=== PATIENT | male | born 1945 | race Caucasian/White ===

== ENCOUNTER 2016-11-26 02:28 | Emergency (ER) | payer OTHER ==
--- NOTE | 2016-11-26 02:55 | PROVIDER DOCUMENTATION ---
HPI-General Adult - General Source: patient - History of Present Illness -Gen Adult Location of Pain/Injury: reports: upper extremity (L SHOULDER), back Pain Radiation: reports: no radiation Quality of Pain: reports: sharp Severity: reports: moderate Onset/Duration: reports: 2 days ago Timing: reports: still present Context/Activities at Onset: reports: light activity Modifying Factors: improves with: coughing, movement Associated Symptoms: reports: back/neck pain, cough, fatigue, fever/chills Similar Symptoms Previously?: Yes Recently seen or treated by another doctor?: No <Charles Leonard - Last Filed: 11/26/16 04:20> <Javier Mauricio I - Last Filed: 11/26/16 07:41> - General Chief Complaint: Cold Symptoms Stated Complaint: BACK PAIN/COLD SX Time Seen by Provider: 11/26/16 02:44 Allergies/Adverse Reactions: Patient Allergies Allergy/AdvReac Type Severity Reaction Status Date / Time Penicillins Allergy Unknown Verified 11/26/16 02:54 Review of Systems - Adult - REVIEW OF SYSTEMS - ADULT Constitutional: reports: chills, fever Eyes: reports: no symptoms reported Ears, Nose, Mouth & Throat: reports: other (HEAD CONGESTION) Cardiovascular: reports: no symptoms reported Respiratory: reports: cough Gastrointestinal: reports: no symptoms reported Genitourinary: reports: no symptoms reported Musculoskeletal: reports: back pain, muscle aches Integumentary: reports: no symptoms reported Neurological: reports: no symptoms reported Psychiatric: reports: no symptoms reported Endocrine: reports: no symptoms reported Hematologic/Lymphatic: reports: no symptoms reported Allergic/Immunologic: reports: no symptoms reported All Other Systems: Reviewed and Negative <Charles Leonard - Last Filed: 11/26/16 04:20> Past History - Adult - PAST MEDICAL HISTORY-ADULT Review of Records: reports: Old Records Reviewed, Nursing Assessment Review, Medications Reviewed, Social history reviewed & non-contributory. Major Childhood Illnesses: reports: denies history Cardiovascular: reports: denies history Respiratory: reports: denies history Gastrointestinal: reports: denies history Obstetrical/Gynecological: reports: denies history Genitourinary: reports: denies history Musculoskeletal: reports: denies history Neurological: reports: denies history Endocrine/Immune: reports: denies history Other Conditions: reports: denies history - FAMILY HISTORY Family History: reviewed, not pertinent <Charles Leonard - Last Filed: 11/26/16 04:20> Physical Exam-General - PHYSICAL EXAM-ADULT Initial Vital Signs Reviewed: Yes - CONSTITUTIONAL General Appearance: no apparent distress - EYES Eyes: PERRL/EOMI, pink conjunctivae - HEAD, EARS, NOSE, MOUTH & THROAT HENMT: normocephalic/atraumatic, moist mucous membranes, normal ENT inspection, TMs normal, pharynx normal - NECK Neck: non-tender, full range of motion, normal inspection. negative: lymphadenopathy - RESPIRATORY Respiratory: crackles (RARE) - CARDIOVASCULAR Cardiovascular: regular rate, rhythm, no gallop, no JVD - CHEST (BREASTS) Chest/Breast: normal breast inspection - GASTROINTESTINAL (ABDOMEN) Abdominal Exam: normal bowel sounds, non tender, soft - GENITOURINARY Male Genitalia: deferred Rectal Exam: deferred - LYMPHATIC Lymphatic: no adenopathy - MUSCULOSKELETAL Back Exam: swelling (LEFT ANKLE AND LOWER LEG) <Charles Leonard - Last Filed: 11/26/16 04:20> Progress - XRAY 1 XRAY Study: Chest Impression: Abnormal (ELEVATED R HEMIDIAPHRAGM, WITH ? FLUID IN MAJOR FISSURE, IRREGULAR OPACITY ALONG L UPPER MARGIN WITH INCREASED MARKINGS L BASE) <Charles Leonard - Last Filed: 11/26/16 04:20> Departure <Charles Leonard - Last Filed: 11/26/16 04:20> - Departure Time of Disposition Order: 07:40 Certified Medical Emergency: Emergent - Critical Care Note Comments: Follow up as needed with your pcp <Javier Mauricio I - Last Filed: 11/26/16 07:41> - Departure DIAGNOSIS: Back pain, Viral syndrome Disposition: HOME 01 Condition: Stable Referrals: Rachana Ramos MD [Primary Care Provider] - Attestation - Scribe Verification/Attestation Scribe:: Javier Mauricio I Scribe documention review:: This chart was documented by a scribe and accurately reflects the service the provider performed and the decisions made by the provider. - Physician/ KRISTA Attestation Patient care was provided by Advanced Practice Provider:: Yes Advanced Practice Provider documentation review:: The Mid-level provider documentation, treatment plan and medical decision making was reviewed by the physician who agrees with all treatment and medical decision making by the MLP. The physician spent face to face time with patient:: Yes (Labs and imaging discussed with the patient. Patient is hemodynamically stable, and is without complaints. Will discharge home.) Advanced Practice Provider documentation review:: The physician spent face to face time with this patient and agrees with all MLP documentation, treatment, and medical decision making by the MLP. See provider notes for further information. <Javier Mauricio I - Last Filed: 11/26/16 07:41> Physician Attestation - Physician Attestation I, the provider, attest to the following statement:: Javier Mauricio Physician documentation Attestation:: This documentation recorded by the scribe accurately reflects the service I personally performed and the decisions made by me. <Javier Mauricio I - Last Filed: 11/26/16 07:41>
[2016-11-26] MEDS ORDERED: NAPROSYN PO ONE (02:56)
--- NOTE | 2016-11-26 02:57 | PROVIDER DOCUMENTATION ---
HPI-General Adult - General Chief Complaint: Cold Symptoms Stated Complaint: BACK PAIN/COLD SX Time Seen by Provider: 11/26/16 02:44 Source: patient
[2016-11-26] MEDS ORDERED: NAPROSYN ONE (02:58)
[2016-11-26 03:13] LABS: URINE SOURCE VOIDED
[2016-11-26 03:31] LABS: MANUAL DIFF NEEDED? NO
[2016-11-26 03:33] LABS: BILIRUBIN URINE NEGATIVE (NEGATIVE); BLOOD URINE NEGATIVE (NEGATIVE); CLARITY CLEAR (CLEAR); COLOR YELLOW; LEUKOCYTES URINE TRACE (NEGATIVE); NITRITE URINE NEGATIVE (NEGATIVE); PH URINE 6.5; PROTEIN URINE 1+(30 mg/dL) mg/dL (NEGATIVE); SP GRAVITY URINE 1.015; URINE RBC <10 /HPF (<10); URINE WBC <10 /HPF (<10); UROBILINOGEN URINE NORMAL
[2016-11-26 03:34] LABS: URINE CULTURE PL NEEDED? YES; URINE EPITHELIAL CELLS <10 /HPF (<10)
[2016-11-26 03:45] LABS: BASO% 0.7 % (0.0-0.8); EOS# 0.07 X1000 (0.0-0.7); EOS% 0.9 % (0.0-10.0); HEMOGLOBIN 14.7 g/dL (14.0-18.0); IMM GRAN# 0.01 X1000 (0.0-0.04); IMM GRAN% 0.1 % (0.0-0.5); LYMPH# 1.26 X1000 (1.2-3.4); LYMPH% 16.7 % (20.5-51.1); MCH 30.4 PG (27-31); MCHC 33.4 g/dL (33-37); MCV 91.1 FL (81-99); MONO# 1.32 X1000 (0.11-0.59); MONO% 17.5 % (1.7-9.3); MPV 11.2 FL (7.4-10.4); NEUT% 64.1 % (42.2-75.2); PLT 195 X1000 (130-400); RBC 4.83 XMIL (4.7-6.1)
[2016-11-26 04:09] LABS: HEMOGLOBIN A1C 5.6 % (4.8-6.0)
[2016-11-26 04:18] LABS: AGAP 12; ALBUMIN 3.8 g/dL (3.5-5.0); ALKALINE PHOSPHATASE 59 U/L (32-122); BUN 13 mg/dL (8-22); CALCIUM 8.6 mg/dL (8.8-10.2); CHLORIDE 101 mmol/L (98-107); COSMO 280; GOT 32 U/L (10-34); GPT 31 U/L (10-44); POTASSIUM 3.3 mmol/L (3.5-5.1); SODIUM 139 mmol/L (136-145); TCO2 27 mmol/L (25-35); TOTAL PROTEIN 6.7 g/dL (6.3-8.3)
[2016-11-26] MEDS ORDERED: NS 1,000 ML IV PRN (05:03)
[2016-11-26] MEDS ORDERED: NS 1,000 ML ONE (05:04)
--- NOTE | 2016-11-26 07:04 | EKG Report ---
Test Performed on : 11/26/2016 06:29:02 AM Test Reason : chest pain Blood Pressure : / mmHG Vent. Rate : 074 BPM Atrial Rate : 074 BPM P-R Int : 206 ms QRS Dur : 078 ms QT Int : 372 ms P-R-T Axes : 048 -05 019 degrees QTc Int : 412 ms Normal sinus rhythm. Normal ECG No previous ECGs available Unconfirmed Result
[2016-11-26 07:47] VITALS: BP 169/93
--- NOTE | 2016-11-26 08:22 | Diag Imaging Result Document ---
PROCEDURE NAME: ANGIOGRAM/PULMONARY ARTERIES - 11/26/2016 CT PULMONARY ANGIOGRAM WITH INTRAVENOUS CONTRAST: COMPARISON: None. FINDINGS: Axial CT images of the chest were obtained after administering intravenous contrast. Coronal MIP images were generated. There is no pulmonary embolism. There is right hemidiaphragm elevation with adjacent atelectasis. No focal infiltrates. Heart and great vessels are normal. No adenopathy. There are numerous old healed left-sided rib fractures. 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 The adrenal glands are hyperplastic. IMPRESSION: Negative for pulmonary embolism. Right hemidiaphragm elevation with mild atelectasis. No acute disease.
--- NOTE | 2016-11-26 08:23 | Diag Imaging Result Document ---
PROCEDURE NAME: CHEST-2 VIEWS - 11/26/2016 CHEST X-RAY 2 VIEWS: COMPARISON: None. FINDINGS: Lung volumes are low. There is mild right hemidiaphragm elevation with adjacent atelectasis. There are numerous left-sided rib deformities. Heart size and pulmonary vascularity is normal. No acute infiltrates. IMPRESSION: Nonspecific findings.
== END 2016-11-26 07:45 | disposition home or self-care (01) ==
LOC: P.ED 02:28
DX: B34.9 Viral infection, unspecified (principal); M54.9 Dorsalgia, unspecified; R50.9 Fever, unspecified; R09.81 Nasal congestion; M79.1 Myalgia
CPT/HCPCS: 71020; 71275; 80053; 81001; 82550; 83036; 84484; 85025; 85379; 87088; 93005; J7030; Q9967